=== PATIENT | female | born 1980 | race Caucasian/White ===

== ENCOUNTER 2017-07-08 10:56 | Emergency (ER) | payer MEDICAID ==
[~2017-07-08] VITALS: Ht 154.9 cm; Wt 79.0 kg
[~2017-07-08 10:56] MED LIST: HYDR-757; IBUPROFEN
[2017-07-08 10:58] VITALS: BP 135/90
== END 2017-07-08 11:50 | disposition home or self-care (01) ==
LOC: ED 11:44
DX: K02.9 Dental caries, unspecified (principal); F17.200 Nicotine dependence, unspecified, uncomplicated
CPT/HCPCS: 99283